=== PATIENT | female | born 1955 | race Caucasian/White ===

== ENCOUNTER 2018-11-28 19:38 | Inpatient (IN) | payer BC ==
[~2018-11-28] VITALS: Ht 162.6 cm; Wt 78.0 kg
[2018-11-28 19:49] VITALS: Ht 162.6 cm; Wt 78.0 kg
[2018-11-28 21:51] LABS: PLATELET COUNT 394 x10^3mcL (130-400); RED CELL DISTRIBUTION WIDTH 13.9 % (11.5-14.5)
[2018-11-28 22:00] LABS: CALCIUM 8.4 mg/dL (8.5-10.1); CARBON DIOXIDE 27.9 mmol/L (21-32); CHLORIDE SERUM 101 mmol/L (98-107); CREATININE SERUM 0.8 mg/dL (0.6-1.0); GFR1 > 60 mL/min; GLUCOSE SERUM 155 mg/dL (74-106); POTASSIUM SERUM 3.5 mmol/L (3.5-5.1); SODIUM SERUM 136 mmol/L (136-145)
[2018-11-28 22:05] LABS: ALBUMIN 3.4 g/dL (3.4-5.0); ALKALINE PHOSPHATASE 114 U/L (46-116); AST/SGOT 17 U/L (15-37); BILIRUBIN TOTAL 0.57 mg/dL (0.20-1.00)
[2018-11-28 22:07] LABS: TOTAL PROTEIN, SERUM 8.3 g/dL (6.4-8.2)
[2018-11-28 22:09] LABS: ATYPICAL LYMPH 2 %; BAND NEUTROPHIL 2 % (0-10); MONOCYTE 8 % (0-7); SEGMENTED NEUTROPHILS 67 % (37-75)
[2018-11-28 22:11] LABS: rbc morphology (normal/abnorm) NORMAL (NORMAL)
[2018-11-28 22:13] LABS: PLATELET MORPHOLOGY PLATELETS NORMAL
[2018-11-28 22:18] LABS: ALT/SGPT 8 U/L (14-59)
[2018-11-28] MEDS ORDERED: TOPROL XL25 MG PO (22:45)
[2018-11-29 00:11] VITALS: BP 155/77
[2018-11-29 00:40] VITALS: BP 143/84
[2018-11-29 05:44] VITALS: BP 130/79
[2018-11-29 06:41] LABS: RED CELL DISTRIBUTION WIDTH 13.4 % (11.5-14.5)
[2018-11-29 06:44] LABS: CALCIUM 8.5 mg/dL (8.5-10.1); CARBON DIOXIDE 24.5 mmol/L (21-32); CHLORIDE SERUM 102 mmol/L (98-107); CREATININE SERUM 0.8 mg/dL (0.6-1.0); GFR1 > 60 mL/min; GLUCOSE SERUM 229 mg/dL (74-106); POTASSIUM SERUM 3.8 mmol/L (3.5-5.1); SODIUM SERUM 135 mmol/L (136-145)
[2018-11-29 08:31] VITALS: BP 139/77
[2018-11-29 08:56] LABS: PLATELET COUNT 415 x10^3mcL (130-400)
[2018-11-29 12:28] LABS: BAND NEUTROPHIL 3 % (0-10); BASOPHIL 0 % (0-2); MONOCYTE 2 % (0-7); SEGMENTED NEUTROPHILS 78 % (37-75)
[2018-11-29 12:29] LABS: PLATELET MORPHOLOGY PLATELETS INCREASED; rbc morphology (normal/abnorm) ABNORMAL (NORMAL)
[2018-11-29 17:30] VITALS: BP 137/69
[2018-11-29 20:57] VITALS: BP 136/88
[2018-11-30 05:29] VITALS: BP 147/75
[2018-11-30 06:46] LABS: CALCIUM 8.7 mg/dL (8.5-10.1); CHLORIDE SERUM 103 mmol/L (98-107); CREATININE SERUM 0.9 mg/dL (0.6-1.0); GFR1 > 60 mL/min; GLUCOSE SERUM 332 mg/dL (74-106); POTASSIUM SERUM 4.8 mmol/L (3.5-5.1); SODIUM SERUM 138 mmol/L (136-145)
[2018-11-30 06:52] LABS: RED CELL DISTRIBUTION WIDTH 13.9 % (11.5-14.5)
[2018-11-30 08:34] LABS: PLATELET COUNT 421 x10^3mcL (130-400)
[2018-11-30 09:14] VITALS: BP 143/76
[2018-11-30 09:29] LABS: MONOCYTE 16 % (0-7); SEGMENTED NEUTROPHILS 66 % (37-75)
[2018-11-30 09:30] LABS: ATYPICAL LYMPH 2 %; BAND NEUTROPHIL 6 % (0-10); PLATELET MORPHOLOGY PLATELETS INCREASED; rbc morphology (normal/abnorm) ABNORMAL (NORMAL)
[2018-11-30 12:40] VITALS: BP 143/76
== END 2018-11-30 15:51 | disposition home or self-care (01) | DRG 193 ==
LOC: ED 19:38 → MU 22:55
PROVIDERS: Emergency Medicine; ADMIT Internal Medicine
DX: J18.9 Pneumonia, unspecified organism (principal); J96.01 Acute respiratory failure with hypoxia; J45.901 Unspecified asthma with (acute) exacerbation; E66.9 Obesity, unspecified; E11.65 Type 2 diabetes mellitus with hyperglycemia; I10 Essential (primary) hypertension; Z68.31 Body mass index [BMI] 31.0-31.9, adult
CPT/HCPCS: 82962; 83880; J0456; J0696; J1956; J2920; J2930; J3370; J7040; J7050; J7512; J7613; J7620; J7633; J7644; Q0092